=== PATIENT | female | born 2000 | race Caucasian/White ===

== ENCOUNTER → 2022-08-16 09:08 | Outpatient (CLI) | payer OTHER, SELFPAY ==
--- NOTE | ~2022-08-16 | US_ITS ---
US breast RT complete DATE: 08/16/2022 09:26 INDICATION: Right breast pain and swelling for one month; no family history of breast cancer TECHNIQUE: Real-time imaging of complete right breast including all 4 quadrants and subareolar area COMPARISON: None FINDINGS: No suspicious mass or shadowing is detected. No cyst is identified. IMPRESSION: BI-RADS Category 1: Negative Reviewed, dictated and finalized at [facility]. Reviewed, dictated and finalized at [facility]. PRESIDENT OF NURSING
== END ==
PROVIDERS: PCP Pediatrics; Visit Provider Nurse Practitioner
DX: N64.4 Mastodynia (principal)
CPT/HCPCS: 76641

== ENCOUNTER 2022-12-01 18:10 | Emergency (ER) | payer OTHER, SELFPAY ==
--- NOTE | 2022-12-01 18:16 | ED.FEMALEGU ---
HPI - Female Genitourinary General Chief complaint: Urogenital-Female Stated complaint: uti Time Seen by Provider: 12/01/22 18:16 Source: patient and RN notes reviewed History of Present Illness HPI Narrative: Patient is a 22 year female who presents to Urgent Care with her mother with complaints of possible UTI due to dysuria, urinary frequency/urgency for the last 3 days. Patient states that she has had a history of UTIs most frequently approximately 2 months ago taking Bactrim. Patient did have an appointment with urologist in which he had to cancel due to school. Patient denies any fever, nausea, vomiting or abdominal pain. States that she has taken several doses of azo without much relief. Denies any vaginal discharge or possibility of . No other acute complaints. No acute distress noted. Patient and mother aware of the plan of care. Some parts of this dictation were generated by voice recognition software and may contain typographical and/or grammatical inaccuracies. Related Data Home Medications Medication Instructions Recorded Confirmed dupilumab 300 mg/2 mL subcutaneous 300 mg subcut WEEKLY 12/01/22 12/01/22 pen injector (Dupixent) norethindrone acetate 1.5 1 tablet PO DAILY 12/01/22 12/01/22 mg-ethinyl estradiol 30 mcg tablet (Microgestin) Allergies Allergy/AdvReac Type Severity Reaction Status Date / Time No Known Allergies Allergy Unknown Unverified 12/01/22 18:19 Review of Systems Review of Systems: CONSTITUTIONAL: Denies fever, chills, or sweats. EYES: Denies visual changes, redness, or discharge. ENT: Denies rhinorrhea, congestion, sore throat, or otalgia. CARDIOVASCULAR: Denies chest pain, palpitations, or edema. RESPIRATORY: Denies cough or dyspnea. GASTROINTESTINAL: Denies abdominal pain, nausea, vomiting, or diarrhea. GENITOURINARY: Reports of dysuria, urinary frequency/urgency SKIN: Denies rash or itching. MUSCULOSKELETAL: Denies back pain, joint pain, or myalgia. NEUROLOGIC: Denies headache, numbness, or weakness. All other systems reviewed are negative, except as documented in HPI. PMFSH Comments At the time of my signature, I reviewed and agree with the nursing past medical, surgical, social, and family history. There is no relevant family history pertinent to the patient complaint. Exam Narrative: GENERAL: This is a well-nourished, well-developed patient, in no apparent distress. HEAD: normocephalic, atraumatic. EYES: PERRL. Sclera clear/white. Vision is grossly intact. EARS: External ears normal NOSE: External nose normal with no obvious nasal discharge, nares without redness, no rhinorrhea. THROAT: Mucous membranes moist NECK: Neck supple, GASTROINTESTINAL: Abdomen soft, non-tender, nondistended. Bowel sounds are active. SKIN: warm, intact with no suspicious lesions or rash, good texture and turgor. NEURO: awake, alert, and oriented to person, place and time. There were no obvious focal neurologic abnormalities. EXTREMITIES: No clubbing, cyanosis, or edema. BACK: Negative bilateral CVA tenderness Course Course Level of Care: Express Care Visit Vital Signs Vital signs: Vital Signs Temperature 98.3 F 12/01/22 18:32 Pulse Rate 99 12/01/22 18:32 Respiratory Rate 20 12/01/22 18:32 Blood Pressure 124/65 12/01/22 18:32 Pulse Oximetry 98 12/01/22 18:32 Temperature 98.3 F 12/01/22 18:32 Pulse Rate 99 12/01/22 18:32 Respiratory Rate 20 12/01/22 18:32 Blood Pressure 124/65 12/01/22 18:32 Pulse Oximetry 98 12/01/22 18:32 Reviewed MDM - Female Genitourinary MDM Narrative Medical decision making narrative: Reviewed lab results with the patient. She is aware that urinalysis appears to be indicative of a urinary tract infection however results are not accurate with the use of azo. Will treat to cover possible UTI due to symptoms. Educated patient on culture and we will call only if results require change in antibiotics.
[2022-12-01 18:32] VITALS: BP 124/65; PULSE 99; RESP 20; TEMP 36.8; O2SAT 98
== END 2022-12-01 18:52 | disposition home or self-care (01) ==
PROVIDERS: Emergency Provider Nurse Practitioner Family
DX: N39.0 Urinary tract infection, site not specified (principal)
CPT/HCPCS: 81003; 87086; 87088; 99213; G0463

== ENCOUNTER 2023-03-05 08:36 | Outpatient (CLI) | payer OTHER, SELFPAY ==
--- NOTE | ~2023-03-05 | MR_ITS ---
EXAMINATION: MR knee RT wo con DATE: 03/05/2023 09:25 INDICATION: Lateral right knee pain. TECHNIQUE: Magnetic resonance imaging (MRI) of the right knee was performed without intravenous contr ast. Sequences included axial PD-weighted FS FSE, coronal PD-weighted FSE and PD-weighted FS FSE, sag ittal PD-weighted FSE, and sagittal T2-weighted FS FSE. COMPARISON: None. FINDINGS: Medial compartment: Medial meniscus is normal. Medial compartment cartilage is normal. Lateral compartment: Lateral meniscus is normal. Lateral compartment cartilage is normal. Patellofemoral compartment: Patellar cartilage is normal. Trochlear cartilage is normal. Ligaments and tendons: The anterior and posterior cruciate ligaments are normal. Medial collateral ligament and lateral roxanne ateral ligament complex are normal. There is mild patellar tendinopathy. Fluid: There is no knee joint effusion. Osseous/other: There is mild edema-like marrow signal intensity in posterolateral aspect of lateral femoral condyle and posterolateral aspect of lateral tibial condyle. IMPRESSION: 1. Mild edema-like marrow signal intensity in posterolateral aspect of lateral femoral condyle and la teral tibial condyle, likely contusions. Reviewed, dictated and finalized at [facility]. IMPRESSION: 1. Mild edema-like marrow signal intensity in posterolateral aspect of lateral femoral condyle and lateral tibial condyle, likely contusions.
== END 2023-03-05 08:37 | disposition home or self-care (01) ==
PROVIDERS: Visit Provider Physician Assistant
DX: M25.561 Pain in right knee (principal); R60.9 Edema, unspecified
CPT/HCPCS: 73721